=== PATIENT | female | born 1940 | race Caucasian/White ===

== ENCOUNTER → 2018-03-18 | Outpatient (CLI) | payer MEDICARE, OTHER ==
[~2018-03-18] MED LIST: AMLO5 PO; Aspir 8181 MG PO; CLON1 PO; DIVA250EC PO; DOCU100 PO; HYDRA25 PO; Klonopin0.5 MG PO; LABE200 PO; LOSA50 PO; Milk Of Ma400 MG/5 M PO; Omeprazole20 M1 PO; PSYL5.85P PO; QUET300 PO; Tylenol325 MG PO
[2018-03-18 13:28] LABS: Bilirubin, Urine Neg (Neg); Blood, Urine Neg (Neg); Glucose Qualitative, Urine Neg (Neg); Ketones, Urine Neg (Neg); Leukocyte Esterase, Urine Neg (Neg); Nitrite, Urine Neg (Neg); Protein, Urine Neg (Neg); Urobilinogen, Urine NORM (Normal); pH, Urine 6.5 (5.0-8.0)
[2018-03-18 13:42] LABS: Appearance, Urine Clear (Clear); Color, Urine Yellow (P-Yellow)
== END | disposition home or self-care (01) ==
LOC: LAB 13:08 → LAB SHORT 13:08
PROVIDERS: Nurse Practitioner Family
DX: Z79.01 Long term (current) use of anticoagulants (principal); Z51.81 Encounter for therapeutic drug level monitoring; N39.0 Urinary tract infection, site not specified
CPT/HCPCS: 81003; 87086

== ENCOUNTER → 2018-12-14 | Outpatient (CLI) | payer MEDICARE, OTHER ==
[2018-12-14 13:14] LABS: Bacteria Few /hpf; Squamous Epithelial Cells Not Seen /hpf (Few); White Blood Cells, Urine Not Seen /hpf (0-5)
== END ==
LOC: LAB SHORT 12:45 → LAB 12:45
PROVIDERS: Nurse Practitioner Family
DX: N39.0 Urinary tract infection, site not specified (principal)
CPT/HCPCS: 81015; 87086

== ENCOUNTER → 2019-06-12 | Outpatient (CLI) | payer MEDICARE, OTHER ==
[2019-06-12 10:16] LABS: Bilirubin, Urine Neg (Neg); Blood, Urine 1+ (Neg); Glucose Qualitative, Urine Neg (Neg); Ketones, Urine Neg (Neg); Leukocyte Esterase, Urine Neg (Neg); Nitrite, Urine Neg (Neg); Protein, Urine Neg (Neg); Urobilinogen, Urine NORM (Normal)
[2019-06-12 10:29] LABS: Appearance, Urine Clear (Clear); Color, Urine Pale Yellow (P-Yellow)
[2019-06-12 10:30] LABS: Bacteria Rare /hpf; Red Blood Cells, Urine 0-2 /hpf (0-2); Squamous Epithelial Cells Rare /hpf (Few); White Blood Cells, Urine 0-2 /hpf (0-5)
== END ==
LOC: LAB 10:08 → LAB SHORT 10:08
PROVIDERS: Nurse Practitioner Family
DX: Z79.01 Long term (current) use of anticoagulants (principal); Z51.81 Encounter for therapeutic drug level monitoring; N39.0 Urinary tract infection, site not specified
CPT/HCPCS: 81001

== ENCOUNTER → 2020-02-07 | Outpatient (CLI) | payer MEDICARE, OTHER ==
[2020-02-07 15:55] LABS: Bilirubin, Urine Neg (Neg); Blood, Urine Neg (Neg); Glucose Qualitative, Urine Neg (Neg); Ketones, Urine Neg (Neg); Leukocyte Esterase, Urine Neg (Neg); Nitrite, Urine Neg (Neg); Protein, Urine 1+ (Neg); Urobilinogen, Urine NORM (Normal)
[2020-02-07 16:00] LABS: Appearance, Urine Clear (Clear); Color, Urine Yellow (P-Yellow)
== END | disposition home or self-care (01) ==
LOC: LAB SHORT 14:46 → LAB 14:46
PROVIDERS: Family Medicine
DX: R30.9 Painful micturition, unspecified (principal)
CPT/HCPCS: 81003

== ENCOUNTER → 2020-05-31 | Outpatient (CLI) | payer MEDICARE, OTHER ==
[2020-05-31 15:44] LABS: Bilirubin, Urine Neg (Neg); Blood, Urine Neg (Neg); Glucose Qualitative, Urine Neg (Neg); Ketones, Urine Neg (Neg); Leukocyte Esterase, Urine Neg (Neg); Nitrite, Urine Neg (Neg); Protein, Urine Neg (Neg); Urobilinogen, Urine NORM (Normal)
[2020-05-31 15:50] LABS: Appearance, Urine Clear (Clear); Color, Urine Yellow (P-Yellow)
== END | disposition home or self-care (01) ==
LOC: LAB SHORT 14:16 → LAB 14:16
PROVIDERS: Family Medicine
DX: N39.0 Urinary tract infection, site not specified (principal)
CPT/HCPCS: 81003; 87086

== ENCOUNTER → 2020-08-05 | Outpatient (CLI) | payer MEDICARE, OTHER ==
[2020-08-06 13:00] LABS: Source, Urine Clean Catch
[2020-08-06 14:11] LABS: Appearance, Urine Clear (Clear); Bilirubin, Urine Neg (Neg); Blood, Urine Neg (Neg); Color, Urine Yellow (P-Yellow); Glucose Qualitative, Urine Neg (Neg); Ketones, Urine Neg (Neg); Leukocyte Esterase, Urine Neg (Neg); Nitrite, Urine Neg (Neg); Protein, Urine Neg (Neg); Specific Gravity, Urine 1.005 (1.003-1.022); Urobilinogen, Urine NORM (Normal)
== END | disposition home or self-care (01) ==
LOC: OLS 12:00 → LAB SHORT 12:00
PROVIDERS: Family Medicine
DX: N39.0 Urinary tract infection, site not specified (principal)
CPT/HCPCS: 81003; 87086

== ENCOUNTER → 2020-08-07 | Outpatient (CLI) | payer MEDICARE, OTHER ==
[2020-08-07 19:53] LABS: BASOPHILS ABSOLUTE AUTO 0.05 K/mm3 (0.00-0.23); BASOPHILS PERCENT AUTO 1 % (0-2); EOSINOPHILS PERCENT AUTO 2 % (0-6); Hematocrit 40.8 % (33.0-51.0); Hemoglobin 13.1 g/dL (11.5-16.0); IMMATURE GRAN ABSOLUTE AUTO 0.05 K/mm3 (0.00-0.10); IMMATURE GRAN PERCENT AUTO 1 % (0-1); LYMPHOCYTES ABSOLUTE AUTO 2.15 K/mm3 (0.84-5.20); LYMPHOCYTES PERCENT AUTO 37 % (21-46); MONOCYTES PERCENT AUTO 9 % (4-13); Mean Corpuscular HGB 30.8 pg (26.0-34.0); Mean Corpuscular HGB Conc 32.1 g/dL (31.5-36.5); Mean Corpuscular Volume 96 fL (80-100); Mean Platelet Volume 11.3 fL (9.1-12.4); NEUTROPHILS ABSOLUTE AUTO 3.02 K/mm3 (1.96-9.15); NEUTROPHILS PERCENT AUTO 51 % (41-73); Platelet Count 202 K/mm3 (150-400); RDW Coefficient Variation 11.9 % (11.7-14.2); RDW Standard Deviation 41.5 fL (35.1-46.3); Red Blood Cell Count 4.25 M/mm3 (3.80-5.20); White Blood Cell Count 5.87 K/mm3 (4.00-11.30)
[2020-08-07 20:45] LABS: Alanine Aminotransfer (ALT/SGP 19 U/L (12-78); Albumin/Globulin Ratio 1.1 (0.8-1.8); Alk Phos 69 U/L (50-136); Anion Gap 6 mmol/L (6-16); Aspartate Aminotrans (AST/SGOT 11 U/L (12-37); Bilirubin, Total 0.3 mg/dL (0.1-1.0); Blood Urea Nitrogen 15 mg/dL (8-24); Bun/Creatinine Ratio 16.7 (12.0-20.0); CO2, Blood 28 mmol/L (21-32); Calcium, Blood 9.4 mg/dL (8.5-10.1); Chloride, Blood 108 mmol/L (98-108); Globulin, Blood 3.6 g/dL (2.2-4.0); Glomerular Filtration Rate >60 (60-); Glucose, Blood 131 mg/dL (70-99); Potassium, Blood 4.1 mmol/L (3.5-5.5); Sodium, Blood 142 mmol/L (136-145); Total Protein, Blood 7.6 g/dL (6.4-8.2)
== END | disposition home or self-care (01) ==
LOC: LAB SHORT 19:10 → LAB 19:10
PROVIDERS: Family Medicine
DX: R73.09 Other abnormal glucose (principal); Z79.899 Other long term (current) drug therapy
CPT/HCPCS: 80053; 83036; 84443; 85025

== ENCOUNTER → 2020-12-10 | Outpatient (CLI) | payer MEDICARE, OTHER ==
[2020-12-10 12:04] LABS: Appearance, Urine Clear (Clear); Bilirubin, Urine Neg (Neg); Blood, Urine Neg (Neg); Color, Urine Yellow (P-Yellow); Glucose Qualitative, Urine Neg (Neg); Ketones, Urine Neg (Neg); Leukocyte Esterase, Urine Neg (Neg); Nitrite, Urine Neg (Neg); Protein, Urine Neg (Neg); Urobilinogen, Urine NORM (Normal)
== END | disposition home or self-care (01) ==
LOC: LAB 07:00 → LAB SHORT 07:00
PROVIDERS: Nurse Practitioner
DX: N39.0 Urinary tract infection, site not specified (principal)
CPT/HCPCS: 81003; 87086

== ENCOUNTER → 2021-02-02 | Outpatient (CLI) | payer MEDICARE, OTHER ==
[2021-02-03 09:39] LABS: Appearance, Urine Clear (Clear); Bilirubin, Urine Neg (Neg); Blood, Urine Neg (Neg); Color, Urine Yellow (P-Yellow); Glucose Qualitative, Urine Neg (Neg); Ketones, Urine Neg (Neg); Leukocyte Esterase, Urine Neg (Neg); Nitrite, Urine Neg (Neg); Protein, Urine Neg (Neg); Urobilinogen, Urine NORM (Normal)
== END | disposition home or self-care (01) ==
LOC: LAB SHORT 08:00 → LAB 08:00
PROVIDERS: Nurse Practitioner
DX: N39.0 Urinary tract infection, site not specified (principal)
CPT/HCPCS: 81003; 87086

== ENCOUNTER → 2021-06-21 | Outpatient (CLI) | payer MEDICARE, OTHER | END | disposition home or self-care (01) | LOC: LAB 09:00 → LAB SHORT 09:00 | DX: Z03.818 Encounter for observation for suspected exposure to other biological agents ruled out (principal); Z20.822 Contact with and (suspected) exposure to COVID-19 | CPT/HCPCS: U0003 ==

== ENCOUNTER → 2021-06-27 | Outpatient (CLI) | payer MEDICARE, OTHER | END | disposition home or self-care (01) | LOC: LAB SHORT 12:40 → LAB 12:40 | DX: Z03.818 Encounter for observation for suspected exposure to other biological agents ruled out (principal); Z20.822 Contact with and (suspected) exposure to COVID-19 | CPT/HCPCS: U0003 ==

== ENCOUNTER → 2021-07-22 | Outpatient (CLI) | payer MEDICARE, OTHER ==
[2021-07-24 16:37] LABS: CORONAVIRUS (COVID19) CSH-NRL Negative (Negative)
== END | disposition home or self-care (01) ==
LOC: LAB SHORT 08:00 → LAB 08:00
PROVIDERS: Nurse Practitioner
DX: Z20.822 Contact with and (suspected) exposure to COVID-19 (principal)
CPT/HCPCS: U0003

== ENCOUNTER → 2021-07-25 | Outpatient (CLI) | payer MEDICARE, OTHER | END | disposition home or self-care (01) | LOC: LAB 15:12 → LAB SHORT 15:12 | DX: Z20.822 Contact with and (suspected) exposure to COVID-19 (principal) | CPT/HCPCS: U0003 ==

== ENCOUNTER 2021-12-21 14:30 | Inpatient (IN) | payer MEDICARE, OTHER ==
[~2021-12-21] VITALS: Ht 167.6 cm; Wt 63.5 kg
[~2021-12-21 14:30] MED LIST changes: -LOSA50 PO; +LOSARTAN POTAS100 M1 PO; -QUET300 PO; +SEROQUEL XR50 MG PO
[2021-12-21 15:02] LABS: BASOPHILS ABSOLUTE AUTO 0.04 K/mm3 (0.00-0.23); BASOPHILS PERCENT AUTO 1 % (0-2); EOSINOPHILS ABSOLUTE AUTO 0.01 K/mm3 (0.00-0.68); EOSINOPHILS PERCENT AUTO 0 % (0-6); Hematocrit 31.4 % (33.0-51.0); Hemoglobin 10.5 g/dL (11.5-16.0); IMMATURE GRAN ABSOLUTE AUTO 0.16 K/mm3 (0.00-0.10); IMMATURE GRAN PERCENT AUTO 2 % (0-1); LYMPHOCYTES ABSOLUTE AUTO 0.69 K/mm3 (0.84-5.20); LYMPHOCYTES PERCENT AUTO 10 % (21-46); MONOCYTES ABSOLUTE AUTO 0.61 K/mm3 (0.16-1.47); MONOCYTES PERCENT AUTO 9 % (4-13); Mean Corpuscular HGB 29.9 pg (26.0-34.0); Mean Corpuscular HGB Conc 33.4 g/dL (31.5-36.5); Mean Corpuscular Volume 90 fL (80-100); Mean Platelet Volume 11.2 fL (9.1-12.4); NEUTROPHILS ABSOLUTE AUTO 5.69 K/mm3 (1.96-9.15); NEUTROPHILS PERCENT AUTO 79 % (41-73); Platelet Count 126 K/mm3 (150-400); RDW Coefficient Variation 13.2 % (11.7-14.2); RDW Standard Deviation 43.6 fL (35.1-46.3); Red Blood Cell Count 3.51 M/mm3 (3.80-5.20)
[2021-12-21 15:19] LABS: Albumin, Blood 2.6 g/dL (3.4-5.0); Albumin/Globulin Ratio 0.7 (0.8-1.8); Bilirubin, Total 0.4 mg/dL (0.1-1.0); Bun/Creatinine Ratio 20.9 (12.0-20.0); Calcium, Blood 8.1 mg/dL (8.5-10.1); Creatinine, Blood 2.54 mg/dL (0.40-1.00); Globulin, Blood 3.7 g/dL (2.2-4.0); Potassium, Blood 4.1 mmol/L (3.5-5.5); Total Protein, Blood 6.3 g/dL (6.4-8.2)
[2021-12-21] MEDS ORDERED: DULOXETINE HCL60 M1 PO (18:01)
[2021-12-21] MEDS ORDERED: MOBIC15 MG PO (18:04)
[2021-12-21] MEDS ORDERED: Inderal60 MG PO (18:04)
[2021-12-21] MEDS ORDERED: TRAM50 PO (18:05)
[2021-12-21] MEDS ORDERED: DOCU100 PO (22:21)
[2021-12-21] MEDS ORDERED: LABE200 PO (22:22)
[2021-12-21] MEDS ORDERED: HYDRA25 PO (22:25)
[2021-12-21] MEDS ORDERED: ACET325 PO (22:26)
[2021-12-21] MEDS ORDERED: PSYSENPA PO (22:27)
[2021-12-21] MEDS ORDERED: CLON.5 PO (22:28)
--- NOTE | 2021-12-21 22:53 | NUR ---
ADMISSION NOTE PATIENT ALERT AND ORIENTED X 4 ABLE TO ANSWER QUESTION APPROPRIATELY SKIN INTACT LUNGS SOUND DIMISH SILVIA NON PRODUCTIVE COUGH NOTED COVID + PLEASANT AGREE FOR SWITCH TECHNICIAN TO DRAW BLOOD WORK ORDERED.ON LACTED RINGER 100MLS/HR.STANDBY ASSIST TO BATHROOM ABLE TO CALL FOR ASSISTANCE BED ALARM ON FOR SAFETY .
[2021-12-22 04:53] LABS: Hematocrit 32.6 % (33.0-51.0); Hemoglobin 10.9 g/dL (11.5-16.0); Mean Corpuscular HGB 29.8 pg (26.0-34.0); Mean Corpuscular HGB Conc 33.4 g/dL (31.5-36.5); Mean Corpuscular Volume 89 fL (80-100); Mean Platelet Volume 11.5 fL (9.1-12.4); Platelet Count 132 K/mm3 (150-400); RDW Coefficient Variation 13.2 % (11.7-14.2); RDW Standard Deviation 43.5 fL (35.1-46.3); Red Blood Cell Count 3.66 M/mm3 (3.80-5.20); White Blood Cell Count 6.85 K/mm3 (4.00-11.30)
[2021-12-22 05:27] LABS: Albumin, Blood 2.6 g/dL (3.4-5.0); Albumin/Globulin Ratio 0.6 (0.8-1.8); Bilirubin, Total 0.4 mg/dL (0.1-1.0); Bun/Creatinine Ratio 30.9 (12.0-20.0); Calcium, Blood 8.3 mg/dL (8.5-10.1); Creatinine, Blood 1.81 mg/dL (0.40-1.00); Magnesium, Blood 2.7 mg/dL (1.6-2.4); Total Protein, Blood 6.6 g/dL (6.4-8.2)
--- NOTE | 2021-12-22 06:02 | NUR ---
SHIFT SUMMARY PATIENT FOUND IN THE BATHROOM UNASSISSTED AND PULLED HER IV LINE OPEN AND BLOOD FLOWING OUT THE LINE INTACT FLUSH WELL PT CLEANED AND BATHROOM FLOOR CLEANED RE ORIENT TO CALL LIGHT AGAIN WITH POSTIVE RESULT PT HAS BEEN CALLING FOR HELP.ABT/IV DOSE ADM AT 6AM NO ADVANCE REACTION NOTED .
[2021-12-22 06:33] LABS: BAND PERCENT MAN 5 % (0-8); BASOPHILS PERCENT MAN 0 % (0-2); EOSINOPHILS PERCENT MAN 0 % (0-6); LYMPHOCYTES ABSOLUTE MAN 0.47 K/mm3 (0.84-5.20); LYMPHOCYTES PERCENT MAN 7 % (21-46); METAMYELOCYTE ABSOLUTE MAN 0.13 K/mm3 (0.00-0.00); METAMYELOCYTE PERCENT MAN 2 % (0-0); MONOCYTES ABSOLUTE MAN 0.95 K/mm3 (0.16-1.47); MONOCYTES PERCENT MAN 14 % (4-13); MYELOCYTE PERCENT MAN 3 % (0-0); NEUTROPHILS ABSOLUTE MAN 5.06 K/mm3 (1.96-9.15); SEG NEUTROPHILS PERCENT MAN 69 % (41-73); TOTAL CELLS COUNTED 100
[2021-12-22] MEDS ORDERED: BISA5EC PO (11:29)
[2021-12-22] MEDS ORDERED: BISA10S PR (11:32)
[2021-12-22] MEDS ORDERED: ARTIFICIAL TEA1 EAC6 BOTHEYES (11:45)
[2021-12-22] MEDS ORDERED: DULO60 PO (11:49)
[2021-12-22] MEDS ORDERED: FISH OIL PO (11:51)
[2021-12-22] MEDS ORDERED: Flonase 0.05% N16 GM (11:54)
[2021-12-22] MEDS ORDERED: MAGNESIUM250 MG PO (11:55)
[2021-12-22] MEDS ORDERED: MOBIC15 MG PO (11:57)
[2021-12-22] MEDS ORDERED: Inderal60 MG PO (12:01)
[2021-12-22] MEDS ORDERED: Seroquel Xr400 MG PO (12:05)
[2021-12-22] MEDS ORDERED: DOCUZEN 8.6-501 EACH PO (12:06)
[2021-12-22] MEDS ORDERED: DULCOLAX400 MG/5 M PO (12:15)
[2021-12-22] MEDS ORDERED: TRAM50 PO (12:16)
--- NOTE | 2021-12-22 12:31 | NUR ---
PT MEDICATION LIST REQUESTED FROM [facility] AND THEY FAXED OVER. MEDICATION RECONCILIATION COMPLETED. DR. SALCEDO NOTIFIED SEVERAL MEDICATION CHANGES ADDED TO MEDICATION RECONCILIATION. HE ALSO GAVE VERBAL ORDER TO GO AHEAD AND CHANGE ACETAMINOPHEN FROM 325 MG TO 650 MG PO BID PRN. ORDERS PROCESSED.
--- NOTE | 2021-12-22 18:51 | NUR ---
PATIENT WAS PLACED ON 1-2l 02 NC TODAY, AFTER SA02 CAME DOWN 85-89. PATIENT HAS ANTIBIOTIC RUNNING AT THIS TIME. MEDICATIONS WERE RECONCILED AFTER A LIST FROM [facility] WAS FAXED OVER. PATIENT EXPERIENCES ANXIETY DURING PERIODS OF CHANGE (WITH MEDS/ WITH ROUTINE ETC). SHE DOESN'T HAVE A STRONG APPETITE BUT DOES EAT SOME OF EACH MEAL.
--- NOTE | 2021-12-23 01:23 | NUR ---
PT BEGAN TO BECOME AGITATED, DISCUSSED WITH PT ABOUT SAFETY CONCERNS BUT DID NOT WANT TO PARTICIPATE IN TEACHING. PT CONTINUED TO BE AGITATED AND DECIDED TO PULL OUT THE IV. PT IS ADAMANT ABOUT NOT GETTING ANOTHER ONE PLACED. THIS RN CONTACTED THE MD AND IS AWARE OF THE SITUATION, MD OKAY WITH NO IV ACCESS FOR THE NIGHT.
--- NOTE | 2021-12-23 05:39 | NUR ---
PT IS A LOT LESS AGITATED THIS MORNING. OVERNIGHT THE PT WAS EXTREMELY AGITATED AND WAS NOT VERY COOPERATIVE. PT SPO2 LEVELS DECREASED TO THE LOW 80'S THIS MORNING POSSIBLY DUE TO HER NON-COMPLIANCE WITH WEARING HER OXYGEN AT NIGHT. PT WAS PLACED ON 6L HF AND CONTINUOUS SPO2 MONITORING IN PLACE. CALLED MD TO NOTIFY ABOUT THE CURRENT SITUATION, MD MADE AWARE ALSO TALKED ABOUT THE PT'S ANXIETY AND BENEFITS FOR A POSSIBLE PRN ANXIOLYTIC. PT IS TRYING TO REST,CALL LIGHT AND BELONGING ARE WIITHIN REACH.
[2021-12-23 10:12] LABS: Anion Gap 9 mmol/L (6-16); Blood Urea Nitrogen 22 mg/dL (8-24); Bun/Creatinine Ratio 25.9 (12.0-20.0); CO2, Blood 26 mmol/L (21-32); Calcium, Blood 8.1 mg/dL (8.5-10.1); Chloride, Blood 103 mmol/L (98-108); Creatinine, Blood 0.85 mg/dL (0.40-1.00); Glomerular Filtration Rate >60 (60-); Glucose, Blood 114 mg/dL (70-99); Potassium, Blood 3.6 mmol/L (3.5-5.5); Sodium, Blood 138 mmol/L (136-145)
--- NOTE | 2021-12-23 18:19 | NUR ---
PATIENT INTERMITTENTLY CONFUSED. NEW IV WAS PLACED LEFT FORARM- IN PLACE AND PATENT. TOLERATING ABX. APPETITE IS POOR. PATIENT DID NAP MORE THAN YESTERDAY. O2 IS HIGHFLOW ON 5L. SATS ARE STAYNG GOOD AT THIS LEVEL. PATIENT COMPLAINS OF FEET/LEG/BACK PAIN BUT ASKS FOR TYLENOL FOR ANXIETY WHEN THEIR IS NO PAIN AND STATES THAT SHE [facility]. MED ED PROVIDED.
--- NOTE | 2021-12-24 04:36 | NUR ---
SHIFT SUMMARY 81 YR F ADMITTED ON 12/21/21 FOR PARVEEN. FULL CODE. PT IS FORGETFUL AND CONFUSED AND TENDED TO GET A BIT GRUMPY WHEN WOKEN UP FOR MEDS OR VITALS. O2 STATS ARE STABLE W/ 5L HIGHFLOW OXYGEN. THERE WERE NO ACUTE CHANGES THIS SHIFT. PT SLEPT FOR NEARLY THE WHOLE SHIFT SO THIS NURSE HAD LITTLE INTERACTION WITH HER. SHE TOOK HER MEDS WHOLE WITH WATER W/ NO DIFFICULTY. SHE WAS INCONTINENT THROUGHOUT THE NIGHT AND DID NOT CALL FOR HELP.
[2021-12-24 05:35] LABS: Hematocrit 32.2 % (33.0-51.0); Hemoglobin 10.8 g/dL (11.5-16.0); Mean Corpuscular HGB 29.5 pg (26.0-34.0); Mean Corpuscular HGB Conc 33.5 g/dL (31.5-36.5); Mean Corpuscular Volume 88 fL (80-100); Mean Platelet Volume 10.8 fL (9.1-12.4); Platelet Count 163 K/mm3 (150-400); RDW Coefficient Variation 13.2 % (11.7-14.2); RDW Standard Deviation 42.8 fL (35.1-46.3); Red Blood Cell Count 3.66 M/mm3 (3.80-5.20); White Blood Cell Count 4.57 K/mm3 (4.00-11.30)
[2021-12-24 05:50] LABS: BAND PERCENT MAN 8 % (0-8); BASOPHILS PERCENT MAN 0 % (0-2); EOSINOPHILS PERCENT MAN 0 % (0-6); LYMPHOCYTES ABSOLUTE MAN 0.86 K/mm3 (0.84-5.20); LYMPHOCYTES PERCENT MAN 19 % (21-46); METAMYELOCYTE PERCENT MAN 11 % (0-0); MONOCYTES PERCENT MAN 11 % (4-13); MYELOCYTE ABSOLUTE MAN 0.18 K/mm3 (0.00-0.00); MYELOCYTE PERCENT MAN 4 % (0-0); NEUTROPHILS ABSOLUTE MAN 2.51 K/mm3 (1.96-9.15); SEG NEUTROPHILS PERCENT MAN 47 % (41-73); TOTAL CELLS COUNTED 100
[2021-12-24 05:51] LABS: Anion Gap 7 mmol/L (6-16); Blood Urea Nitrogen 15 mg/dL (8-24); Bun/Creatinine Ratio 18.7 (12.0-20.0); CO2, Blood 28 mmol/L (21-32); Chloride, Blood 107 mmol/L (98-108); Glomerular Filtration Rate >60 (60-); Glucose, Blood 119 mg/dL (70-99); Potassium, Blood 3.8 mmol/L (3.5-5.5); Sodium, Blood 142 mmol/L (136-145)
--- NOTE | 2021-12-24 16:12 | NUR ---
BRADYCARDIA: PATIENT HAS OCCASIONAL BARDYCARDIA LOW 48 BPM, UNSUSTAINED. WITHIN ONE OR TWO BEATS, THE HR INCREASES BACK TO MID-50S-MID 60S. PATIENT DENIES ANY SIGNS OR SYMPTOMS. PATIENT REPORTS THAT SHE IS FEELING BETTER THAN YESTERDAY. PATIENT STEADY ON HER FEET TO THE BSC. NOTIFIED DR. SALCEDO. NO NEW ORDERS AT THIS TIME. PATIENT CONTINUES TO BE ON CONTINUOUS BIOX.
--- NOTE | 2021-12-24 18:43 | NUR ---
END OF SHIFT SUMMARY: PATIENT DENIED PAIN THROUGHOUT THE SHIFT. PATIENT REPORTED FEELING BETTER TODAY. PATIENT ANXIOUS AT TIMES. PATIENT HAS DISORGANIZED THOUGHTS AND HALLUCINATIONS AT TIMES (FOR EXAMPLE: SHE REPORTED THAT THE WHITE METAL CORROSION PROOFER HAD COME TO [facility] AND "GOTTEN EVERYONE FIRED"). PATIENT HAS SOME CONFUSION AND LACK OF STML. PATIENT RECEPTIVE TO FEEDBACK AND ENCOURAGEMENT. PATIENT STEADY ON HER FEET. NO SHORTNESS OF BREATH NOTED WITH STANDING TO THE [facility]. PATIENT DENIES SHORTNESS OF BREATH. SPO2 DECREASES TO LOW AST 88% WITH ACTIVITY. PATIENT AT 94-95% WHEN AT REST FOR SPO2. INTERMITTANTLY, PATIENT WOULD HAVE A HEART RATE LOW 38, THAT WOULD LAST FOR ABOUT 2 SECONDS BEFORE RETURNING TO AT LEAST 55 BPM. PATIENT ASYMPTOMATIC. NO IDENTIFIABLE TRIGGERING EVENT. PATIENT HAS A VERY MINIMAL APPETITE. ASSISTING WITH HER TRAY AND ENCOURAGING PO INTAKE HELPS.
--- NOTE | 2021-12-25 02:03 | NUR ---
SHIFT SUMMARY: A&OX2, FORGETFUL, DISORGANIZED THINKING, ARGUMENTAIVE WITH STAFF, AND CONTRADICTORY. TREMORS AT BASELINE PER PATIENT. REMAINS ON 5L HFLNC TO MAINTAIN SAT>92% LCTA DIMIINSHED, NO DYPNEA NOTED. SBA TO BSC WITHOUT DIFFICULTY. URNINARY FREQUENCY ON NOC. COMPLIANT WITH MEDICATIONS. WCTM.
--- NOTE | 2021-12-25 17:15 | NUR ---
DAY SHIFT SUMMARY 81 YR OLD FEMALE FROM [facility], ADMITTED WITH PARVEEN AND COVID. PT EXPERIENCING FREQUENT URINARY URGENCY BUT HAS NOT ALWAYS VOIDED WHEN GETTING TO THE BSC. PLAN IS TO SEND PT BACK TO [facility] WHEN COVID RESOLVED. CALL LIGHT WITHIN REACH OF PT, ABLE TO CALL APPROPRIATELY. 6L O2 NC HIGH FLOW.
[2021-12-26 05:11] LABS: BASOPHILS ABSOLUTE AUTO 0.03 K/mm3 (0.00-0.23); BASOPHILS PERCENT AUTO 0 % (0-2); EOSINOPHILS PERCENT AUTO 0 % (0-6); Hematocrit 34.9 % (33.0-51.0); Hemoglobin 11.4 g/dL (11.5-16.0); IMMATURE GRAN ABSOLUTE AUTO 0.35 K/mm3 (0.00-0.10); IMMATURE GRAN PERCENT AUTO 5 % (0-1); LYMPHOCYTES ABSOLUTE AUTO 1.16 K/mm3 (0.84-5.20); LYMPHOCYTES PERCENT AUTO 16 % (21-46); MONOCYTES PERCENT AUTO 10 % (4-13); Mean Corpuscular HGB 29.5 pg (26.0-34.0); Mean Corpuscular HGB Conc 32.7 g/dL (31.5-36.5); Mean Corpuscular Volume 90 fL (80-100); Mean Platelet Volume 10.6 fL (9.1-12.4); NEUTROPHILS ABSOLUTE AUTO 5.05 K/mm3 (1.96-9.15); NEUTROPHILS PERCENT AUTO 69 % (41-73); Platelet Count 251 K/mm3 (150-400); RDW Coefficient Variation 13.3 % (11.7-14.2); RDW Standard Deviation 43.5 fL (35.1-46.3); Red Blood Cell Count 3.87 M/mm3 (3.80-5.20); White Blood Cell Count 7.29 K/mm3 (4.00-11.30)
[2021-12-26 05:39] LABS: Anion Gap 6 mmol/L (6-16); Blood Urea Nitrogen 19 mg/dL (8-24); Bun/Creatinine Ratio 26.5 (12.0-20.0); CO2, Blood 28 mmol/L (21-32); Calcium, Blood 8.5 mg/dL (8.5-10.1); Chloride, Blood 103 mmol/L (98-108); Creatinine, Blood 0.72 mg/dL (0.40-1.00); Glomerular Filtration Rate >60 (60-); Glucose, Blood 119 mg/dL (70-99); Potassium, Blood 3.7 mmol/L (3.5-5.5); Sodium, Blood 137 mmol/L (136-145)
--- NOTE | 2021-12-26 06:32 | NUR ---
SHIFT SUMMARY: PATIENT MENTATION CLEARING, LABILE BEHAVIOR, SHE REQUESTED HER SEROQUEL SHE IS HAVING DIFFICULTY SLEEPING HERE. LAST NIGHT SHE WAS UP AND DOWN CONSTATNLY. MD CONTACTED AND HOME DOSE OF SEROQUEL RESTARTED. NOTED FINE CRACKELS BILATERAL LUNGS. REAMINS ON 5L HFLNC. SOME DESATURATION NOTED WITH AMBULATION TO BSC.
--- NOTE | 2021-12-27 05:07 | NUR ---
[employer]ENTER DIRECT[employer] SUMMARY ADMITTED FOR ACUTE KIDNEY INJURY. PT IS A FULL CODE. SHE HAS BEEN AMBULATING A STANDBY ASSIST TO THE RESTROOM. SHE IS REFUSING TO USE THE WALKER SAYING "THEY TOLD ME I COULDN'T USE IT IN ORDER TO GO HOME." PT HAS BEEN RESTING THROUGHOUT THE NIGHT. PLAN FOR POSSIBLE DISCHARGE TODAY.
--- NOTE | 2021-12-27 14:12 | NUR ---
IMAGING DEPT WAS GOING TO RUN A SCAN ON PATIENT. PATIENT NEEDS TO HAVE A LARGER IV PLACED IN THE AC OR ABOVE THAT AREA BEFORE SCAN CAN TAKE PLACE. PATIENT DECLINES TO HAVE ANOTHER IV. SHE STATES "YOU ARE DONE, I AM NOT DOING ANY THING ELSE. YOU PEOPLE JUST MAKE THINGS UP TO KEEP US HERE". THIS WEATHERSTRIP MACHINE OPERATOR ATTEMPTED TO EDUCATE THE PATIENT ON THE IMPORTANCE OF THE ORDERS, BUT SHE REFUSES TO ALLOW NEW ORDERS TO BEGIN. PATIENT ALSO DECLINED TO HAVE A BAG OF NORMAL SALINE HUNG, AND RAN IN THROUGH THE IV THAT IS ALREADY PRESENT IN THE LEFT FOREARM.
--- NOTE | 2021-12-27 17:39 | NUR ---
PATIENT WAS LOOKING TO DISCHARGE SOON. A FOLLOW UP SCAN WAS ORDERED BUT THE PATIENT REFUSED TO HAVE ANOTHER IV PLACED TO MAKE THE SCAN POSSIBLE. SHE IS ALSO NOT WILLING TO HAVE A BAG OF ns RAN THROUGH HER ALREADY PRESENT IV. MEDICATION CHANGES TOOK EFFECT TODAY. PATIENTS MOOD IS LABILE- HAPPY AT TIMES AND THEN ANXIOUS AND UNWILLING TO FOLLOW NEW ORDERS. SHE STATES "I FEEL BACK TO NORMAL" AND IS WONDERING WHY SHE IS STILL HERE.
--- NOTE | 2021-12-28 06:57 | NUR ---
SHIFT SUMMARY PT A/O X3, IRRITABLLE AT TIMES AND UNCOOPERATIVE WITH ASSISTANCE TO BR AND WITH RAISING HOB , LUNGS CTA WITH OCCAS. NONPRODUCTIVE COUGH, O2 AT 2.5 L/M HIGH FLOW AT BEGINNING OF SHIFT AND GRADUALLY INCREASED TO 6L/M HIGH FLOW TO MAINTAIN O2 SAT AT 92%, DENIES ANY PAIN, NO ACUTE DISTRESS NOTED.
--- NOTE | 2021-12-28 18:43 | NUR ---
SUMMARY- PT UP WITH SBA IN ROOM TO BATHROOM. HAD BM X2 TODAY AFTER MIRILAX AND METEMUCIL THIS AM, PT STATES MED AND FORMED BROWN. TOLERATING FOOD AND FLUIDS. C/O PAIN IN LEGS, CRAMPING, MEDICATED WITH TYLENOL WITH MOD RELEIF. PT REFUSED SHOWER TODAY. SHE REFUSED ALL LABS ORDERED BY DR LOPEZ. STATES SHE ONLY WANTED DR SALCEDO AND KIM DO ANY OF THE PROCEDURES ORDERED BECAUSE SHE THINKS THEY ARE TO MAKE THE HOSPITAL MORE MONEY. ENCOURAGED 3 TIMES THIS AM TO ALLOW LABS TO BE DRAWN AND REFUSED. PT BEGAN TO COMPLAIN ABOUT FEELING SWEATY AND HOT THAN COLD FROM THE SWEAT. SO TURNED HEAT UP AND STATES SHE FELT BETTER. HAS NO FEVER. RN EXPLAINED WE CANT SEE IF ANYTHING IS OFF IN HER SYSTEM BECAUSE WE HAVE NO LAB DATA. PT THINKS SHE MAY ALLOW LABS TO BE DRAWN IN THE AM.
--- NOTE | 2021-12-29 04:55 | NUR ---
SUMMARY: PT A/OX3, CALLS APPROPRIATELY TO SPECIFY NEEDS AND WAS PLEASANT AND COOPERATIVE W/CARE. SHE'S SBA TO TOILET AND REPOSITIONS SELF IN BED. SHE REPORT INTERMITTENT CRAMPING IN LEGS BUT DENIED NEEDING ANY PRN MEDS FOR IT THIS SHIFT. SHE REMAINS ON 3L HUMIDIFIED O2 TO MAINTAIN SPO2 WNL. LS DIM BUT NO S/S RESP DISTRESS. PT HAS COVID AND WILL NEED HOME O2 EVAL PRIOR TO POSSIBLE D/C HOME TO [facility] TODAY. NO ACUTE CHANGES, VSS/AFEBRILE. WCTM AND REPORT TO DAY RN.
[2021-12-29 05:48] LABS: Albumin, Blood 2.4 g/dL (3.4-5.0); Anion Gap 6 mmol/L (6-16); Blood Urea Nitrogen 37 mg/dL (8-24); Bun/Creatinine Ratio 44.3 (12.0-20.0); CO2, Blood 28 mmol/L (21-32); Calcium, Blood 8.6 mg/dL (8.5-10.1); Chloride, Blood 104 mmol/L (98-108); Creatinine, Blood 0.84 mg/dL (0.40-1.00); Glomerular Filtration Rate >60 (60-); Glucose, Blood 95 mg/dL (70-99); Phosphorus, Blood 4.7 mg/dL (2.5-4.9); Potassium, Blood 4.7 mmol/L (3.5-5.5); Sodium, Blood 138 mmol/L (136-145)
[2021-12-29] MEDS ORDERED: DECADRON6 M1 PO (12:50)
[2021-12-29] MEDS ORDERED: GUAI600T33 PO (12:50)
--- NOTE | 2021-12-29 16:24 | NUR ---
DISCHARGE PT DISCHARGED AND RETURNED TO [facility] VIA W/C JERE. HARD COPY SCRIP FOR [place] W/ PT.
== END 2021-12-29 16:16 | DRG 177 ==
LOC: ER 14:30 → MEDS 19:26 → ENPENDDIS 12-29 11:43 → MEDS 12-29 16:16
PROVIDERS: Emergency Medicine; Internal Medicine; ADMIT Internal Medicine
PROC: 3E0333Z Introduction of Anti-inflammatory into Peripheral Vein, Percutaneous Approach (ICD-10-PCS; principal; 2021-12-21)
DX: U07.1 COVID-19 (principal); J12.82 Pneumonia due to coronavirus disease 2019; J69.0 Pneumonitis due to inhalation of food and vomit; J96.01 Acute respiratory failure with hypoxia; G92.8 Other toxic encephalopathy; N17.9 Acute kidney failure, unspecified; F03.91 Unspecified dementia, unspecified severity, with behavioral disturbance; I12.9 Hypertensive chronic kidney disease with stage 1 through stage 4 chronic kidney disease, or unspecified chronic kidney disease; N18.30 Chronic kidney disease, stage 3 unspecified; K21.9 Gastro-esophageal reflux disease without esophagitis; Z85.3 Personal history of malignant neoplasm of breast; Z90.10 Acquired absence of unspecified breast and nipple; R41.0 Disorientation, unspecified; E78.5 Hyperlipidemia, unspecified; E86.0 Dehydration; N28.9 Disorder of kidney and ureter, unspecified; R41.89 Other symptoms and signs involving cognitive functions and awareness
CPT/HCPCS: 36415; 71045; 80048; 80053; 80069; 83605; 83735; 84145; 85025; 85379; 86140; 87040; 94761; 94762; 96365; 96372; 96375; 97162; 99285-25; A9270; J0295; J1100; J1650; J7030; J7050; J7120

== ENCOUNTER 2022-12-01 11:27 | Emergency (ER) | payer MEDICARE, OTHER ==
[~2022-12-01] VITALS: Ht 167.6 cm; Wt 65.3 kg
[~2022-12-01 11:27] MED LIST changes: +ACET325 PO; +ARTIFICIAL TEA1 EAC6 BOTHEYES; +BISA10S PR; +BISA5EC PO; +CLON.5 PO; +DECADRON6 M1 PO; +DOCUZEN 8.6-501 EACH PO; +DULCOLAX400 MG/5 M PO; +DULO60 PO; +DULOXETINE HCL60 M1 PO; +FISH OIL PO; +Flonase 0.05% N16 GM; +GUAI600T33 PO; +Inderal60 MG PO; +MAGNESIUM250 MG PO; +MOBIC15 MG PO; +PSYSENPA PO; +Seroquel Xr400 MG PO; +TRAM50 PO
[2022-12-01] MEDS ORDERED: HYDHCL25 PO (14:24)
[2022-12-01] MEDS ORDERED: TRAM50 PO (14:24)
== END 2022-12-01 20:17 | disposition home or self-care (01) ==
LOC: ER 11:27
DX: F11.93 Opioid use, unspecified with withdrawal (principal); F41.9 Anxiety disorder, unspecified; G89.29 Other chronic pain; I10 Essential (primary) hypertension; Z88.2 Allergy status to sulfonamides; Z88.8 Allergy status to other drugs, medicaments and biological substances; Z91.011 Allergy to milk products; Z79.82 Long term (current) use of aspirin; Z79.899 Other long term (current) drug therapy
CPT/HCPCS: 96372; 99282-25; A9270; J1885

== ENCOUNTER → 2023-08-23 | Outpatient (CLI) | payer MEDICARE, OTHER ==
[~2023-08-23] MED LIST changes: +HYDHCL25 PO
== END ==
LOC: LAB 14:22 → LAB SHORT 14:22
DX: R30.0 Dysuria (principal)
CPT/HCPCS: 87086

== ENCOUNTER 2023-10-19 10:29 | Observation (INO) | payer MEDICARE, OTHER ==
[~2023-10-19] VITALS: Ht 167.6 cm; Wt 60.0 kg
[~2023-10-19 10:29] MED LIST changes: +QUET100 PO; +QUETIAPINE FUM400 M2 PO; -SEROQUEL XR50 MG PO; -Seroquel Xr400 MG PO
[2023-10-19 11:21] LABS: Hematocrit 34.8 % (33.0-51.0); Hemoglobin 11.8 g/dL (11.5-16.0); Mean Corpuscular HGB 30.7 pg (26.0-34.0); Mean Corpuscular HGB Conc 33.9 g/dL (31.5-36.5); Mean Corpuscular Volume 91 fL (80-100); Mean Platelet Volume 10.9 fL (9.1-12.4); Platelet Count 144 K/mm3 (150-400); RDW Coefficient Variation 12.2 % (11.7-14.2); RDW Standard Deviation 40.4 fL (35.1-46.3); Red Blood Cell Count 3.84 M/mm3 (3.80-5.20); White Blood Cell Count 12.14 K/mm3 (4.00-11.30)
[2023-10-19 11:41] LABS: BAND PERCENT MAN 31 % (0-8); BASOPHILS ABSOLUTE MAN 0.12 K/mm3 (0.00-0.23); BASOPHILS PERCENT MAN 1 % (0-2); EOSINOPHILS PERCENT MAN 0 % (0-6); LYMPHOCYTES ABSOLUTE MAN 1.45 K/mm3 (0.84-5.20); LYMPHOCYTES PERCENT MAN 12 % (21-46); MONOCYTES ABSOLUTE MAN 1.21 K/mm3 (0.16-1.47); MONOCYTES PERCENT MAN 10 % (4-13); NEUTROPHILS ABSOLUTE MAN 9.34 K/mm3 (1.96-9.15); SEG NEUTROPHILS PERCENT MAN 46 % (41-73); TOTAL CELLS COUNTED 100
[2023-10-19 11:44] LABS: Albumin/Globulin Ratio 0.8 (0.8-1.8); Bilirubin, Total 0.4 mg/dL (0.1-1.0); Bun/Creatinine Ratio 22.4 (12.0-20.0); Calcium, Blood 8.3 mg/dL (8.5-10.1); Creatinine, Blood 0.94 mg/dL (0.40-1.00); Globulin, Blood 3.7 g/dL (2.2-4.0); Potassium, Blood 3.9 mmol/L (3.5-5.5); Total Protein, Blood 6.7 g/dL (6.4-8.2)
[2023-10-19 13:43] LABS: Adenovirus Not Detected (NOT DETECT); Coronavirus 229E Not Detected (NOT DETECT); Coronavirus HKU1 Not Detected (NOT DETECT)
[2023-10-19 13:44] LABS: Bordetella pertussis Not Detected (NOT DETECT); Chlamydophila pneumoniae Not Detected (NOT DETECT); Coronavirus NL63 Not Detected (NOT DETECT); Coronavirus OC43 Not Detected (NOT DETECT); Human Metapneumovirus Not Detected (NOT DETECT); Human Rhinovirus/Enterovirus Not Detected (NOT DETECT); Influenza A/2009-H1 Not Detected (NOT DETECT); Influenza A/H1 Not Detected (NOT DETECT); Influenza A/H3 Not Detected (NOT DETECT); Influenza B Not Detected (NOT DETECT); Mycoplasma pneumoniae Not Detected (NOT DETECT); Parainfluenza Virus 1 Not Detected (NOT DETECT); Parainfluenza Virus 2 Not Detected (NOT DETECT); Parainfluenza Virus 3 Not Detected (NOT DETECT); Parainfluenza Virus 4 Not Detected (NOT DETECT); Respiratory Syncytial Virus Not Detected (NOT DETECT); SARS-Cov-2 (COVID-19), BioFire Not Detected (NOT DETECT)
[2023-10-19 16:56] LABS: Source, Urine Clean Catch
[2023-10-19 16:59] LABS: Appearance, Urine Turbid (Clear); Bilirubin, Urine Neg (Neg); Blood, Urine 1+ (Neg); Color, Urine Yellow (P-Yellow); Glucose Qualitative, Urine Neg (Neg); Ketones, Urine 1+ (Neg); Leukocyte Esterase, Urine 2+ (Neg); Nitrite, Urine Neg (Neg); Protein, Urine 2+ (Neg); Urobilinogen, Urine NORM (Normal)
[2023-10-19 17:07] LABS: Bacteria Many /hpf; Squamous Epithelial Cells Mod /hpf (Few)
--- NOTE | 2023-10-19 19:35 | NUR ---
ADMIT NOTE DAY RN RECEIVED REPORT FROM AIRCRAFT INSPECTION RECORD CLERK. I RECEIVED REPORT FROM DAY RN. PT ARRIVED TO FLOOR VIA EUGENE. PT ORIENTED TO UNIT. PERSONAL POSSESSIONS WITH PATIENT. CALL BUTTON WITHIN REACH. BOLUS INFUSING PATIENT ARRIVED TO THE FLOOR. 2 LPM O2 VIA NC.
[2023-10-19 19:56] VITALS: BP 152/84
[2023-10-20] VITALS (9 sets, daily range): BP systolic 113–180; BP diastolic 65–98
--- NOTE | 2023-10-20 05:12 | NUR ---
SHIFT SUMMARY ADMITTED FOR RESPIRATORY FAILURE. FULL CODE. LLL PNEUMONIA/UTI. IV ANTIB AND STEROID RX ARE SCHEDULED. REGULAR DIET. 2 LPM O2 VIA NC, RA @ HOME. SHE IS ANXIOUS, A&O X3. SHE CAN MAKE HER NEEDS KNOWN. SHE CALLS APPROPRIATELY. STANDBY ASSIST TO BSC. SHE IS NORMALLY INDEPENDENT WITH A FWW. SHE IS [facility]
[2023-10-20 10:42] LABS: Hematocrit 32.1 % (33.0-51.0); Mean Corpuscular HGB 30.7 pg (26.0-34.0); Mean Corpuscular HGB Conc 34.3 g/dL (31.5-36.5); Mean Corpuscular Volume 90 fL (80-100); Mean Platelet Volume 11.1 fL (9.1-12.4); Platelet Count 132 K/mm3 (150-400); RDW Coefficient Variation 12.2 % (11.7-14.2); Red Blood Cell Count 3.58 M/mm3 (3.80-5.20); White Blood Cell Count 10.16 K/mm3 (4.00-11.30)
[2023-10-20 11:11] LABS: Bun/Creatinine Ratio 22.5 (12.0-20.0); Calcium, Blood 8.4 mg/dL (8.5-10.1); Creatinine, Blood 0.76 mg/dL (0.40-1.00); Potassium, Blood 3.7 mmol/L (3.5-5.5)
[2023-10-20] MEDS ORDERED: HYDHCL25 PO (11:45)
[2023-10-20] MEDS ORDERED: Mobic15 MG PO (11:47)
[2023-10-20] MEDS ORDERED: TRAZ50 PO (11:55)
[2023-10-20] MEDS ORDERED: MIRALAX17 GM PO (11:56)
[2023-10-20 12:36] LABS: BAND PERCENT MAN 33 % (0-8); BASOPHILS PERCENT MAN 0 % (0-2); EOSINOPHILS PERCENT MAN 0 % (0-6); LYMPHOCYTES ABSOLUTE MAN 1.42 K/mm3 (0.84-5.20); LYMPHOCYTES PERCENT MAN 14 % (21-46); MONOCYTES PERCENT MAN 2 % (4-13); NEUTROPHILS ABSOLUTE MAN 8.53 K/mm3 (1.96-9.15); SEG NEUTROPHILS PERCENT MAN 51 % (41-73); TOTAL CELLS COUNTED 100
[2023-10-20] MEDS ORDERED: VISBIOME 112.51 EACH PO (12:39)
[2023-10-20] MEDS ORDERED: CEFD300 PO (12:40)
[2023-10-20] MEDS ORDERED: AZIT500 PO (12:40)
--- NOTE | 2023-10-20 20:12 | NUR ---
SHIFT SUMMARY PATIENT MEDICATED TODAY FOR GENERALIZED PAIN, HYPERTENSION. BLOOD PRESSURES ELEVATED THIS AFTERNOON. MEDICATIONS INITIALLY HELD THIS AM PER DR TEMPLE ORDER TO GET MED REC DONE FIRST. [facility] NOTIFIED THE MED LIST IS NOT ON THIS FLOOR, THEY FAXED A NEW LIST LATE MORNING. MED REC DONE BY NICOLA BISHOP. ORDER THEN RECIEVED FOR PATIENT TO GO HOME TODAY AND NOT WORRY ABOUT MORNING MEDICATIONS, PATIENT CAN GET THEM WHEN SHE GOES HOME. PATIENT THEN HAD ELEVATED BLOOD PRESSURE. DR TEMPLE IN CLINICAL SO DR COKER ORDERED TO GIVE ALL AM MEDS THIS AFTERNOON AND RECHECK BP IN 1 HOUR. ON RECHECK, BP STILL ELEVATED, DR STATES GO AHEAD AND GIVE HYDRALAZINE. 1 ADDITIONAL BP CHECK RIGHT BEFORE GIVING HYDRALAZINE AND BP WAS DOWN TO 150S SYSTOLIC. PATIENT STATES SHE STILL DOES NOT FEEL WELL AND NEEDS TO STAY ANOTHER NIGHT. SHE WAS WEENED OFF ALL O2 DURING THE DAY HOWEVER. DR JIMENEZ NOTIFIED AND HE IS AGREABLE TO KEEP HER OVERNIGHT. PATIENT UP WALKING STEADY TO BATHROOM THIS EVENING WITH HER WALKER SBA.
--- NOTE | 2023-10-21 03:43 | NUR ---
NOTIFIED HOSPITALIST PT WOKE UP, CAME OUT OF HER ROOM HIGHLY AGITATED. SHE REFUSED TO BE REDIRECTED. SHE WAS YELLING AND TRYING TO LEAVE. NEW ORDERS RECEIVED. SEE EMAR.
--- NOTE | 2023-10-21 03:59 | NUR ---
SHIFT SUMMARY ADMITTED FOR RESPIRATORY FAILURE/LLL PNEUMONIA. ALSO HAS A UTI. FULL CODE. PLAN IS FOR IV ANTIB RX AND STEROIDS. SHE IS HOPEFUL FOR DC BACK TO HER [facility] SOON. SHE BECAME AGITATED AND CONFUSED AT TIMES, MEDICATED PER EMAR. SHE DOES SEEM TO SUNDOWN AND BECOME CONFUSED AT TIMES. REGULAR DIET. ON RA. INDEPENDENT.
[2023-10-21 08:19] VITALS: BP 133/64
--- NOTE | 2023-10-21 11:50 | NUR ---
CALLED DR. TEMPLE CALLED DR. TEMPLE TO NOTIFY OF PT'S REFUSAL TO TAKE PO ABX. PT STATED FOR THIS NURSE TO "SHUT UP AND LEAVE ME ALONE".
[2023-10-21] MEDS ORDERED: Clonazepam0.25 MG PO (12:08)
[2023-10-21] MEDS ORDERED: TRAM50 PO (12:10)
--- NOTE | 2023-10-21 15:05 | NUR ---
DISCHARGE NOTE PT DISCHARGED HOME TO [facility] AT APPROX 13:30. PT PROVIDED W/ VERBAL AND WRITTEN INSTRUCTIONS AND DID NOT REPORT UNDERSTANDING AND WAS UNRECEPTIVE. PACKET PLACED IN PT'S BELONINGS BAG. PT A&O, CONFUSED AT TIMES, VSS, VOIDING, TOLERATING PO, AND DENIED PAIN. PT'S BELONGINGS WERE RETURNED AND PT ESCOURTED OUT VIA W/C BY [id number].
== END 2023-10-21 14:41 | disposition home or self-care (01) ==
LOC: ER 10:29 → ERHOLD 10:30 → MEDS 10:30 → ENPENDDIS 10-20 13:28 → MEDS 10-21 14:41
PROVIDERS: Student in an Organized Health Care Education/Training Program; ADMIT Hospitalist
DX: J96.01 Acute respiratory failure with hypoxia (principal); J18.9 Pneumonia, unspecified organism; I16.0 Hypertensive urgency; R30.0 Dysuria; F03.90 Unspecified dementia, unspecified severity, without behavioral disturbance, psychotic disturbance, mood disturbance, and anxiety; I10 Essential (primary) hypertension; E78.5 Hyperlipidemia, unspecified; K21.9 Gastro-esophageal reflux disease without esophagitis; Z88.2 Allergy status to sulfonamides; Z88.1 Allergy status to other antibiotic agents; Z88.8 Allergy status to other drugs, medicaments and biological substances; Z79.82 Long term (current) use of aspirin; Z79.899 Other long term (current) drug therapy; Z20.822 Contact with and (suspected) exposure to COVID-19
CPT/HCPCS: 0202U; 36415; 71045; 80048; 80053; 81001; 83605; 84145; 85025; 87040; 87086; 93005; 93010; 94640; 94664; 96361; 96365; 96367; 96372; 96375; 99285-25; A9270; G0378; J0360; J0456; J0696; J1650; J2060; J2405; J7030; J7050; J7512

== ENCOUNTER → 2025-01-18 | Outpatient (CLI) | payer MEDICARE, OTHER ==
[~2025-01-18] MED LIST changes: +AZIT500 PO; +CEFD300 PO; +Clonazepam0.25 MG PO; +MIRALAX17 GM PO; +Mobic15 MG PO; +TRAZ50 PO; +VISBIOME 112.51 EACH PO
[2025-01-18 12:42] LABS: Source, Urine Clean Catch
[2025-01-18 15:48] LABS: Appearance, Urine Clear (Clear); Bilirubin, Urine Neg (Neg); Blood, Urine Neg (Neg); Glucose Qualitative, Urine Neg (Neg); Ketones, Urine Neg (Neg); Leukocyte Esterase, Urine Neg (Neg); Nitrite, Urine Neg (Neg); Protein, Urine Neg (Neg); Specific Gravity, Urine 1.005 (1.003-1.022); Urobilinogen, Urine NORM (Normal)
[2025-01-18 16:12] LABS: Color, Urine Pale Yellow (P-Yellow)
== END | disposition home or self-care (01) ==
LOC: LAB 01-17 20:00
PROVIDERS: Nurse Practitioner Family
DX: N39.0 Urinary tract infection, site not specified (principal)
CPT/HCPCS: 81003

== ENCOUNTER → 2025-05-29 | Outpatient (CLI) | payer MEDICARE, OTHER ==
[2025-05-29 16:44] LABS: Source, Urine Clean Catch
[2025-05-29 17:43] LABS: Bilirubin, Urine Neg (Neg); Glucose Qualitative, Urine Neg (Neg); Ketones, Urine Neg (Neg); Leukocyte Esterase, Urine 3+ (Neg); Protein, Urine 3+ (Neg); Specific Gravity, Urine 1.010 (1.003-1.022); Urobilinogen, Urine NORM (Normal)
[2025-05-29 17:49] LABS: Color, Urine Pale Yellow (P-Yellow)
[2025-05-29 17:50] LABS: White Blood Cells, Urine TNTC /hpf (0-5)
== END ==
LOC: LAB SHORT 16:43 → LAB 16:43
PROVIDERS: Nurse Practitioner Family
DX: N39.0 Urinary tract infection, site not specified (principal)
CPT/HCPCS: 81001